=== PATIENT | male | born 1995 | race Caucasian/White ===

== ENCOUNTER 2017-06-05 20:49 | Emergency (ER) | payer SELFPAY ==
[2017-06-05 21:14] LABS: #Basophils 0.1 thou/uL (0.0-0.2); #Eosinphils 0.1 thou/uL (0.0-0.7); #Lymphocytes 2.1 thou/uL (1.20-3.40); #Monocytes 0.5 thou/uL (0.11-0.59); #Neutrophils 2.8 thou/uL (1.40-6.50); %Basophils 2.5 % (0.0-1.0); %Eosinophils 2.2 % (0.0-10.0); %Lymphocytes 37.3 % (28.0-48.0); %Monocytes 7.9 % (0.0-4.0); Hematocrit 42.7 % (42.0-52.0); Mean Platelet Volume 8.8 fL (7.4-10.4); Red Blood Cell (RBC) Count 4.97 mill/uL (4.00-5.20); White Blood Cell (WBC) Count 5.6 thou/uL (4.8-10.8)
[2017-06-05 21:38] LABS: ALT (SGPT) 19 U/L (8-55); AST (SGOT) 17 U/L (10-45); Alkaline Phosphatase 105 U/L (Less than 750); Anion Gap 12 mmol/L (10-20); BUN (Urea Nitrogen) 10 mg/dL (8.4-21.0); Bilirubin, Total 0.4 mg/dL (0.2-1.2); Calc. Creatinine Clearance 0 mL/min (70-130); Calcium 9.4 mg/dL (7.8-10.44); Carbon Dioxide 25 mmol/L (22-29); Chloride 103 mmol/L (98-107); Estimated GFR-MDRD Greater than 90; Lipase 22 U/L (8-78); Protein, Total 7.2 g/dL (6.0-8.3)
[2017-06-05 21:43] LABS: Troponin I Less than 0.010 ng/mL (< 0.028)
--- NOTE | 2017-06-05 21:45 | RAD ---
CHEST ONE VIEW 06/05/17 HISTORY: Chest pain. FINDINGS: The cardiac silhouette is magnified by projection. Pulmonary vasculature is unremarkable. Mediastinum is midline. There is no confluent air space consolidation or evidence of pneumothorax. IMPRESSION: No active cardiopulmonary abnormalities are demonstrated. POS: [facility]
== END 2017-06-05 22:40 | disposition home or self-care (01) ==
LOC: ERS 20:49
DX: R07.9 Chest pain, unspecified (principal)
CPT/HCPCS: 36415; 71010; 80053; 82553; 83690; 84484; 85025; 93005

== ENCOUNTER 2017-08-01 10:40 | Emergency (ER) | payer SELFPAY | END 2017-08-01 12:22 | disposition home or self-care (01) | LOC: ERS 10:40 | DX: H66.92 Otitis media, unspecified, left ear (principal) | CPT/HCPCS: 99282 ==